=== PATIENT | female | born 1990 | race Caucasian/White ===

== ENCOUNTER 2017-10-16 22:38 | Emergency (ER) | payer OTHER ==
[2017-10-16 23:18] VITALS: BMI 29.5
[2017-10-16] MEDS ORDERED: Apap-Butalbital-Caffeine 325-50-40mg Tab PO STA (23:21)
--- NOTE | 2017-10-16 23:27 | OBHP ---
Datetime: 10/16/2017 23:23 IP Adm Impression: , intrauterine IP Admit Plan: Observation/Evaluation; Discharge home Admit Comment, IP Provider: [birth year] presents with hx of migrane vizcarra since last Saturday. POBHX: SAB X 1 PGYNHX: NONE PMHX: NONE PSHX: NONE SOCIAL: NEGATIVE MEDS; NONE ALL: NKDA A/P 27 @ 06/24 PRESENTS TODAY FOR C/O MIGRAINE VIZCARRA 1) FIORCET 2) FOLLOW UP WITH NEUROLOGIST. Pelvic Type - PN: Adequate Extremities - PN: Normal Abdomen - PN: Normal Back - PN: Normal Breast - PN: Normal Lungs - PN: Normal Heart - PN: Normal Thyroid - PN: Normal Neurologic - PN: Normal HEENT - PN: Normal General - PN: Normal FHR - Baseline A Provider: 140 Gestation - Est Wks by US: 06/24 EGA AdmitDate IP: 22.5 Vital Signs Provider: Reviewed IP Chief Complaint: Other FHR Category Provider Fetus A: Category I Genitourinary Exam: Normal DTRs - PN: Normal
[2017-10-17 07:20] VITALS: BP 122/75; PULSE 90; RESP 20; TEMP 97.3
== END 2017-10-17 03:11 | disposition home or self-care (01) ==
LOC: C.EROB 22:38
DX: O26.892 Other specified pregnancy related conditions, second trimester (principal); G43.909 Migraine, unspecified, not intractable, without status migrainosus; Z3A.22 22 weeks gestation of pregnancy

== ENCOUNTER 2017-12-16 15:27 | Emergency (ER) | payer OTHER ==
--- NOTE | 2017-12-16 16:06 | OBHP ---
Datetime: 12/16/2017 16:02 IP Adm Impression: , intrauterine IP Chief Complaint Other: pih Admit Comment, IP Provider: at 31weks semndf for pih work yup.no hedache or blurry vision,no ct xs, vb , lof+fm obhx primi pmh de med pnv all nkda psh de soch den a/p at 31weks pih pih work up cont mary and efm bp laila f/u Pelvic Type - PN: Adequate Extremities - PN: Normal Abdomen - PN: Normal Back - PN: Normal Breast - PN: Normal Lungs - PN: Normal Heart - PN: Normal Thyroid - PN: Normal Neurologic - PN: Normal HEENT - PN: Normal General - PN: Normal FHR - Baseline A Provider: 130 Contraction Comments Provider: none Vital Signs Provider: Reviewed; Within Normal Limits NICHD Variability Prov Fetus A: Moderate 6-25bpm NICHD Accel Fetus A IP Provider: 10X10 FHR Category Provider Fetus A: Category I Genitourinary Exam: Normal DTRs - PN: Normal Datetime: 10/16/2017 23:23 EGA AdmitDate IP: 22.5
[2017-12-16 16:11] LABS: BASO % 0.4 % (0.0-2.0); EOS # 0.1 K/uL (0.0-0.7); EOS % 0.5 % (0.0-4.0); HEMOGLOBIN 11.8 g/dL (11.0-16.0); LYMPH # 1.5 K/uL (1.0-4.3); LYMPH % 12.8 % (20.0-40.0); MEAN CELL VOLUME 84.4 fL (81.0-99.0); MEAN CORPUSCULAR HEMOGLOBIN 29.1 pg (27.0-31.0); MEAN CORPUSCULAR HGB CONC 34.5 g/dL (33.0-37.0); MEAN PLATELET VOLUME 7.7 fL (7.2-11.7); MONO # 0.6 K/uL (0.0-0.8); MONO % 5.3 % (0.0-10.0); NEUT # 9.5 K/uL (1.8-7.0); RBC 4.07 Mil/uL (3.80-5.20); RED CELL DISTRIBUTION WIDTH 13.4 % (11.5-14.5); WHITE BLOOD COUNT 11.7 K/uL (4.8-10.8)
[2017-12-16 16:25] LABS: INR 1.1; PROTHROMBIN TIME 11.8 SECONDS (9.7-12.2)
[2017-12-16 16:27] LABS: ALB/GLOB RATIO 1.2 (1.0-2.1); ALBUMIN 3.6 g/dL (3.5-5.0); ALT/SGPT 26 U/L (9-52); AST/SGOT 16 U/L (14-36); BLOOD UREA NITROGEN 6 mg/dL (7-17); CALCIUM 9.6 mg/dl (8.6-10.4); GFR NON-AFRICAN AMERICAN > 60
[2017-12-16 16:44] LABS: SQUAMOUS EPITHIAL 9 /hpf (0-5); URINE BACTERIA RARE (<OCC); URINE BILIRUBIN NEGATIVE (NEGATIVE); URINE BLOOD NEGATIVE (NEGATIVE); URINE CLARITY Hazy (Clear); URINE COLOR Amber (YELLOW); URINE GLUCOSE (UA) NORMAL (Normal); URINE LEUKOCYTE ESTERASE NEG Leu/uL (Negative); URINE PROTEIN NEGATIVE (NEGATIVE)
[2017-12-16 16:58] LABS: HEPATITIS B SURFACE AG Negative (NEGATIVE)
[2017-12-16 17:03] LABS: HEPATITIS B CORE AB NEGATIVE (NEGATIVE)
[2017-12-16 17:05] LABS: HEPATITIS A IGM NEGATIVE (NEGATIVE)
[2017-12-16 17:15] LABS: HEPATITIS C ANTIBODY NEGATIVE (NEGATIVE)
--- NOTE | 2017-12-16 19:34 | OBDCSUM ---
Datetime: 12/16/2017 17:16 Discharged to, Provider: Home Follow up at, Provider: Disch Instr Activity: Normal activity Disch Instr Diet: Regular Discharge Time: 12/16/2017 17:17 Follow up in weeks, Provider: 12/23/17 Disch Referrals: None Discharge Comment, Provider: tanner thomas given po hy ptl f/ Discharge Diagnosis Prov Other: rebeca
[2017-12-16 22:28] VITALS: BP 136/64; PULSE 96; RESP 20; TEMP 97.2; O2SAT 97
== END 2017-12-16 17:20 | disposition home or self-care (01) ==
LOC: C.EROB 15:27
DX: O13.3 Gestational [pregnancy-induced] hypertension without significant proteinuria, third trimester (principal); Z3A.31 31 weeks gestation of pregnancy

== ENCOUNTER 2018-01-26 19:58 | Inpatient (IN) | payer OTHER ==
[2018-01-26 20:16] VITALS: BMI 43.0
[2018-01-26] MEDS ORDERED: Nalbuphine HCL 10 mg/ml Ampule IVP PRN (20:21)
[2018-01-26] MEDS: Lactated Ringer's 1,000 ML IV SCH (20:40)
--- NOTE | 2018-01-26 20:52 | OBADHP ---
Datetime: 01/26/2018 20:49 IP Chief Complaint Other: hedache gestation htn Admit Comment, IP Provider: at 37+weks camee with c/o hedache on /of. pt hs gestationl htn, no ctxs,vb , lof=fm obhx 1 x ta pmh de med pnv all kda psh de soch de ve close a/p at 37+weks gestational htn admi to l_d npo/ivf labs ua cervidil cont mary ad efm anticipate nsv Pelvic Type - PN: Adequate Extremities - PN: Normal Abdomen - PN: Normal Back - PN: Normal Breast - PN: Normal Lungs - PN: Normal Heart - PN: Normal Thyroid - PN: Normal Neurologic - PN: Normal HEENT - PN: Normal General - PN: Normal FHR - Baseline A Provider: 130 Contraction Comments Provider: irr IP Hx Assessment: The History has been Reviewed and is Current Vital Signs Provider: Reviewed; Within Normal Limits NICHD Variability Prov Fetus A: Moderate 6-25bpm NICHD Accel Fetus A IP Provider: 15X15 FHR Category Provider Fetus A: Category I Dilatation, Provider: 0 Effacement, Provider: 0 Station, Provider: -3 Genitourinary Exam: Normal DTRs - PN: Normal IP Adm Impression: Term, intrauterine IP Admit Plan: Admit to unit; Initiate labor induction protocol Datetime: 10/16/2017 23:23 Gestation - Est Wks by US: 06/24 IP Chief Complaint: Other EGA AdmitDate IP: 22.5
[2018-01-26 21:13] LABS: BASO % 0.1 % (0.0-2.0); EOS # 0.1 K/uL (0.0-0.7); EOS % 0.6 % (0.0-4.0); HEMOGLOBIN 12.4 g/dL (11.0-16.0); LYMPH # 1.5 K/uL (1.0-4.3); LYMPH % 14.6 % (20.0-40.0); MEAN CELL VOLUME 84.6 fL (81.0-99.0); MEAN CORPUSCULAR HEMOGLOBIN 29.2 pg (27.0-31.0); MEAN CORPUSCULAR HGB CONC 34.5 g/dL (33.0-37.0); MEAN PLATELET VOLUME 8.2 fL (7.2-11.7); MONO # 0.6 K/uL (0.0-0.8); MONO % 5.8 % (0.0-10.0); NEUT % 78.9 % (50.0-75.0); RBC 4.24 Mil/uL (3.80-5.20); RED CELL DISTRIBUTION WIDTH 13.2 % (11.5-14.5); WHITE BLOOD COUNT 10.1 K/uL (4.8-10.8)
[2018-01-26 21:19] LABS: PARTIAL THROMBOPLASTIN TIME 29 SECONDS (21-34); PROTHROMBIN TIME 10.7 SECONDS (9.7-12.2)
[2018-01-26 21:21] LABS: SQUAMOUS EPITHIAL 30 /hpf (0-5); URINE BACTERIA MANY (<OCC); URINE BILIRUBIN NEGATIVE (NEGATIVE); URINE BLOOD NEGATIVE (NEGATIVE); URINE CLARITY Hazy (Clear); URINE COLOR Amber (YELLOW); URINE GLUCOSE (UA) NORMAL (Normal); URINE LEUKOCYTE ESTERASE NEG Leu/uL (Negative); URINE PROTEIN 2+ mg/dL (NEGATIVE)
[2018-01-26 21:27] LABS: FDP INTERPRETATION NEGATIVE (NEGATIVE)
[2018-01-26 21:28] LABS: FDP QUANTITY <10 ug/mL (<10)
[2018-01-26 21:30] LABS: ALB/GLOB RATIO 1.1 (1.0-2.1); ALBUMIN 3.4 g/dL (3.5-5.0); ALT/SGPT 25 U/L (9-52); AST/SGOT 21 U/L (14-36); BILIRUBIN,DIRECT 0.4 mg/dL (0.0-0.4); BLOOD UREA NITROGEN 8 mg/dL (7-17); GFR NON-AFRICAN AMERICAN > 60
[2018-01-26 21:37] LABS: BARBITURATES, UR NEGATIVE (NEGATIVE); BENZODIAZEPINES, UR NEGATIVE (NEGATIVE); OPIATES, UR NEGATIVE (NEGATIVE); PHENCYCLIDINE, UR NEGATIVE (NEGATIVE)
[2018-01-27] MEDS: Lactated Ringer's 1,000 ML IV SCH ×2 (10:00→18:15)
[2018-01-27] MEDS ORDERED: Bupivacaine HCl 0.5% PF (30 ml) Inj ONE (12:54)
[2018-01-28] MEDS: Lactated Ringer's 1,000 ML IV SCH ×4 (01:55→17:00)
[2018-01-28] MEDS ORDERED: Bupivacaine HCl/FentaNYL Cit 100 ML EPI ONE (16:34)
--- NOTE | 2018-01-28 17:04 | OBPN ---
Datetime: 01/28/2018 16:55 IP Progress Impression: Normal progression of labor IP Procedures: Sterile Vag Exam IP Progress Plan: Cervical Ripening Membranes, Provider: Intact Contraction Comments Provider: 5-8 minutes FHR - Baseline A Provider: 145 Gestation - Est Wks by US: 37w 4d IP Progress Note Comment: Patient examined at approx 1537 hours Cervical exam - as above. Assessment: 27 y.o. P0, 37w 4d, serial IOL for gest HTN, S/P cytotec p.o. x 4. Category 1 tracing. BPs wnl. D/W Dr. Kelly - will proceed with intracervical balloon. 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 Patient is clinically stable. Plan: 1) Epidural 2) Intracervical balloon 3) Pitocin 4) Anticipate vaginal delivery - as per Dr. Kelly Vital Signs Provider: Reviewed NICHD Accel Fetus A IP Provider: 15X15 FHR Category Provider Fetus A: Category I NICHD Variability Prov Fetus A: Moderate 6-25bpm Dilatation, Provider: 2-3 Effacement, Provider: 40 Station, Provider: -3 NICHD Decel Fetus A IP Provider: None
[2018-01-28] MEDS ORDERED: Oxytocin 30 UNIT 30 UNITS/500 ML BAG IV ONE ×3 (19:01→22:50)
[2018-01-29] MEDS ORDERED: Bupivacaine HCl/FentaNYL Cit 0 ML EPI ONE (01:35)
[2018-01-29] MEDS ORDERED: Bupivacaine HCl/FentaNYL Cit 100 ML EPI ONE ×3 (09:34→16:47)
--- NOTE | 2018-01-29 10:43 | OBPN ---
Datetime: 01/29/2018 09:00 IP Procedures Other: Removal of Intracervical Balloon IP Progress Impression: Reassuring heart rate; Gest. HTN/PreEclampsia/Eclampsia IP Informed Consent Obtain: Vaginal Delivery IP Procedures: Sterile Vag Exam IP Progress Plan: Continue present management; Induction Membranes, Provider: Intact Contraction Comments Provider: Irregular with Pitocin at 12 mU/min FHR - Baseline A Provider: 150 Gestation - Est Wks by US: 37.5 Presentation-Admit: Vertex IP Progress Note Comment: Pt seen and examined and Intracervical Balloon removed per Dr. Kelly's reque st SVE unchanged from last PM when balloon inserted BP's slightly increased but no VIZCARRA, BV or EP Epidural in place and working well Report given to Dr. Kelly and request to continue increasing Pitocin to an adequate labor pattern Will consider C/S today if no progress and patient aware and verbalized understanding Vital Signs Provider: Reviewed Vital Signs Provider Details: BP 131/88 at 07:30 NICHD Accel Fetus A IP Provider: 10X10 NICHD Variability Prov Fetus A: Moderate 6-25bpm Dilatation, Provider: 3 Effacement, Provider: 60 Station, Provider: -3 NICHD Decel Fetus A IP Provider: None
[2018-01-29 11:36] LABS: BASO % 0.1 % (0.0-2.0); EOS % 0.2 % (0.0-4.0); HEMOGLOBIN 12.1 g/dL (11.0-16.0); LYMPH # 1.2 K/uL (1.0-4.3); LYMPH % 10.7 % (20.0-40.0); MEAN CELL VOLUME 86.5 fL (81.0-99.0); MEAN CORPUSCULAR HGB CONC 34.7 g/dL (33.0-37.0); MEAN PLATELET VOLUME 8.3 fL (7.2-11.7); MONO # 0.7 K/uL (0.0-0.8); MONO % 6.8 % (0.0-10.0); NEUT # 9.1 K/uL (1.8-7.0); NEUT % 82.2 % (50.0-75.0); RBC 4.04 Mil/uL (3.80-5.20); RED CELL DISTRIBUTION WIDTH 13.6 % (11.5-14.5)
[2018-01-29 11:48] LABS: PROTHROMBIN TIME 11.3 SECONDS (9.7-12.2)
[2018-01-29 12:00] LABS: ALT/SGPT 23 U/L (9-52); AST/SGOT 19 U/L (14-36); BLOOD UREA NITROGEN 6 mg/dL (7-17); CALCIUM 8.7 mg/dl (8.6-10.4); GFR NON-AFRICAN AMERICAN > 60
[2018-01-29] MEDS: Lactated Ringer's 1,000 ML IV SCH (14:48)
[2018-01-29] MEDS ORDERED: Dextrose 5%/Lactated Ringer's 1,000 ML IV SCH (15:45)
[2018-01-29] MEDS ORDERED: cefOXitin IV 2 gm in Dextrose 2 GM/50 ML BAG IVPB ONE (17:33)
[2018-01-29] MEDS ORDERED: Oxytocin 20 units in LR 2,000 ML IV ONE (17:35)
[2018-01-29] MEDS ORDERED: Sodium Citrate/Citric Acid 15 ml Sol ONE (17:35)
[2018-01-29] MEDS ORDERED: cefOXitin IV 2 gm in Saline 2 GM/50 ML BAG IVPB ONE (17:36)
[2018-01-29] MEDS ORDERED: Sodium Citrate/Citric Acid 15 ml Sol PO STA (17:38)
[2018-01-29] MEDS ORDERED: EPINEPHrine 1 mg/ml (1:1000) Inj ONE (18:00)
[2018-01-29] MEDS ORDERED: Lidocaine 2% MPF (5 ml) Inj ONE ×5 (18:00→18:57)
[2018-01-29] MEDS ORDERED: Sodium Bicarbonate (8.4%) 50 Meq Syringe ONE (18:02)
[2018-01-29] MEDS ORDERED: Oxytocin 10 Units/ml Inj ONE ×2 (19:08→19:09)
[2018-01-29] MEDS ORDERED: Morphine 1 mg/ml preservative-free Inj(Duramorph) ONE (19:13)
[2018-01-29] MEDS ORDERED: oxyCODONE 5 mg Immediate Release Tab PO PRN (20:09)
[2018-01-29] MEDS ORDERED: Naloxone 0.4 mg/ml Inj (Adult) IVP PRN (20:10)
--- NOTE | 2018-01-29 20:15 | OBPN ---
Datetime: 01/29/2018 20:10 IP Progress Impression: Arrest of dilatation/descent IP Informed Consent Obtain: Section Delivery IP Procedures: Artificial ROM IP Progress Plan: Deliver- Section IP Progress Note Comment: protracted labor arrest of descent and labor at 3cm despite multiple agent s, CPD, likely occiput posterior. patient and mom agree to section Dilatation, Provider: 3 Effacement, Provider: 60 Station, Provider: -2
--- NOTE | 2018-01-29 20:17 | OBDS ---
DELIVERY PERSONNEL Delivery Doctor: Dr Kelly Shovel Logger: Kathleen Mcnamara RN Anesthesiologist: Dr Lundy Satellite Technician: Dr Lundy MATERNAL INFORMATION Delivery Anesthesia: Epidural Medications in Delivery: PITOCIN Estimated Blood Loss (ml): 600 Placenta Cultured: No Maternal Complications: None Provider Comments: fetus found in occiput posterior position, CPD LABOR SUMMARY EDC: 02/14/2018 00:00 No. Babies in Womb: 1 Labor Anesthesia: Epidural/spinal LABOR INFORMATION Reason for Induction: Gest. HTN/PreEclampsia/Eclampsia Cervical Ripening Agents: Hauser Balloon (Annotations: cook place by Dr. Walton with 80cc of LR in u terine balloon and 80cc of LR in vaginal balloon. pt tolerated procedure well) Oxytocin: Augmentation Group B Beta Strep: Negative Steroids Given: None Reason Steroids Not Administered: Not Applicable MEMBRANES Membranes Rupture Method: Spontaneous Rupture of Membranes: 01/29/2018 17:48 Length of Rupture (hrs): 1.22 Amniotic Fluid Color: Clear Amniotic Fluid Amount: Moderate Amniotic Fluid Odor: None STAGES OF LABOR Stage 3 hrs: 0 Stage 3 min: 2 CSECTION DELIVERY Primary Indication: Arrest of Descent Other Primary Indication: arrest of labor CSection Urgency: Elective CSection Incidence: Primary Labor: Labor Elective: Elective CSection Incision: Lower Uterine Transverse BABY A INFORMATION Delivery Date/Time: 01/29/2018 19:01 Method of Delivery: Born in Route : No : N/A Forceps: N/A Vacuum Extraction: N/A Shoulder Dystocia : No SHOULDER DYSTOCIA BABY A Infant Delivery Date/Time: 01/29/2018 19:01 PRESENTATION/POSITION BABY A Presentation: Cephalic Cephalic Presentation: Vertex Vertex Position: Right Occipital Anterior Breech Presentation: N/A PLACENTA INFORMATION BABY A Placenta Delivery Time : 01/29/2018 19:03 Placenta Method of Delivery: Manual Removal Placenta Status: Delivered SCORES BABY A Heart Rate 1 min: >100 bpm Resp Effort 1 min: Good Cry Reflex Irritability 1 min: Cough or Sneeze or Pulls Away Muscle Tone 1 min: Active Motion Color 1 min: Body Bland, Extremities Blue Resuscitation Effort 1 min: Tactile Stimulation SCORE 1 MIN: 9 Heart Rate 5 min: >100 bpm Resp Effort 5 min: Good Cry Reflex Irritability 5 min: Cough or Sneeze or Pulls Away Muscle Tone 5 min: Active Motion Color 5 min: Body Bland, Extremities Blue Resuscitation Effort 5 min: N/A SCORE 5 MIN: 9 INFANT INFORMATION BABY A Gestational Age at Delivery: 37.5 Gestational Status: Term Infant Outcome : Liveborn Infant Condition : Stable Sex: Male IDENTIFICATION/MEDS BABY A ID Band Number: [id number] ID Band Location: Left Leg; Left Arm Sensor Applied: Yes Sensor Number: [id number] Sensor Location : Cord Clamp Vitamin K Given : Not Given Erythromycin Given: Not Given WEIGHT/LENGTH BABY A Infant Birthweight (gms): 3945 Weight (lb): 8 Infant Weight (oz): 11 Length Inches: 19.50 Length cms: 49.5 CORD INFORMATION BABY A No. Cord Vessels: 3 Nuchal Cord : N/A Cord Blood Taken: Yes Infant Suction: Mouth; Nose ASSESSMENT BABY A Infant Complications: None Physical Findings at Delivery: Within Normal Limits Infant Respirations: Appears Normal Classer/ALS Called : No Transferred To: Nursery
[2018-01-29] MEDS ORDERED: Acetaminophen IV 1,000 MG in Premixed IV 1 EA IV ONE (23:27)
[2018-01-30 08:57] LABS: MEAN CELL VOLUME 86.9 fL (81.0-99.0); MEAN CORPUSCULAR HEMOGLOBIN 30.3 pg (27.0-31.0); MEAN CORPUSCULAR HGB CONC 34.9 g/dL (33.0-37.0); MEAN PLATELET VOLUME 8.5 fL (7.2-11.7); RBC 3.28 Mil/uL (3.80-5.20); RED CELL DISTRIBUTION WIDTH 13.7 % (11.5-14.5); WHITE BLOOD COUNT 10.5 K/uL (4.8-10.8)
[2018-01-30] MEDS: oxyCODONE 5 mg Immediate Release Tab PO PRN ×2 (09:59→20:11)
[2018-01-30] MEDS: Prenatal Multivit/Folic Acid/Iron Tab PO SCH (13:56)
[2018-01-31] MEDS: Prenatal Multivit/Folic Acid/Iron Tab PO SCH (10:40)
[2018-02-01] MEDS: Prenatal Multivit/Folic Acid/Iron Tab PO SCH (10:33)
--- NOTE | 2018-02-01 18:27 | OBPPN ---
Datetime: 02/01/2018 18:20 PP Pain Prov: Within normal limits PP Breasts Prov: Normal PP Heart Prov: Normal PP Lungs Prov: Normal PP Abdomen/Uterus Prov: Normal PP Lochia Prov: Normal PP Vulva/Perineum Prov: Normal PP CVA Tenderness Prov: Normal PP Extremities Prov: Normal PP C/S Incision Prov: Normal PP Progress Prov: Normal PP Impression Prov: Pain PP Progress Note Prov: ambulation issues, still has not had bowel movement, d/c home tomorrow Vital Signs Provider PP: Reviewed; Within Normal Limits Datetime: 01/31/2018 16:18 PP Nausea Prov: Denies PP Flatus Prov: Yes PP BM Prov: No PP Comments Phys Exam Prov: Abdomen: Patient refused to take binder off therefore examination of fun migdalia height and abdominal incision was not possible. Extremities: Bilateral lower non-pitting lower extremity edema. No erythema, warmth, or calf tende rness noted PP Plan Prov: Continue present management IP PP Procedures: None
[2018-02-02 00:09] VITALS: O2SAT 98
[2018-02-02] MEDS ORDERED: Influenza Vaccine 60 MCG/0.5 ML SYR (3 yr & up) IM ONE (07:20)
[2018-02-02 08:02] VITALS: BP 124/84; PULSE 67; RESP 18
[2018-02-02] MEDS: Prenatal Multivit/Folic Acid/Iron Tab PO SCH (09:40)
[2018-02-02 16:32] VITALS: TEMP 97.1
== END 2018-02-02 12:30 | disposition home or self-care (01) | DRG 788 ==
LOC: C.EROB 19:58 → C.4D 20:20 → C.4M 01-29 21:20
PROVIDERS: ADMIT Obstetrics & Gynecology; ATTEND Obstetrics & Gynecology
PROC: 10D00Z1 Extraction of Products of Conception, Low, Open Approach (ICD-10-PCS; principal; 2018-01-29)
DX: O14.94 Unspecified pre-eclampsia, complicating childbirth (principal); O15.1 Eclampsia complicating labor; O62.1 Secondary uterine inertia; Z3A.37 37 weeks gestation of pregnancy; O33.9 Maternal care for disproportion, unspecified; Z37.0 Single live birth